=== PATIENT | female | born 1990 | race Two or more races ===

== ENCOUNTER 2025-07-03 11:30 | Outpatient (CLI) | payer OTHER | END 2025-07-03 11:49 | disposition home or self-care (01) | LOC: PRENATAL 11:30 | PROVIDERS: ATTEND Obstetrics & Gynecology Maternal & Fetal Medicine | DX: O44.00 Complete placenta previa NOS or without hemorrhage, unspecified trimester (principal); O09.519 Supervision of elderly primigravida, unspecified trimester; Z3A.21 21 weeks gestation of pregnancy ==

== ENCOUNTER → 2025-09-30 13:20 | Outpatient (CLI) | payer OTHER | END | disposition home or self-care (01) | LOC: PRENATAL 13:20 | PROVIDERS: ATTEND Obstetrics & Gynecology Maternal & Fetal Medicine | DX: O26.843 Uterine size-date discrepancy, third trimester (principal); O36.8130 Decreased fetal movements, third trimester, not applicable or unspecified; O09.513 Supervision of elderly primigravida, third trimester; Z3A.34 34 weeks gestation of pregnancy ==